=== PATIENT | female | born 1960 | race Caucasian/White ===

== ENCOUNTER → 2016-04-02 | Outpatient (CLI) | payer BC ==
[~2016-04-02] MED LIST: MOME50SP5
== END | disposition home or self-care (01) ==
LOC: C.PATHSPEC 13:39
PROVIDERS: ATTEND Obstetrics & Gynecology
DX: R87.610 Atypical squamous cells of undetermined significance on cytologic smear of cervix (ASC-US) (principal); A63.0 Anogenital (venereal) warts

== ENCOUNTER → 2016-04-02 | Outpatient (CLI) | payer BC | END | disposition home or self-care (01) | LOC: C.PAPS 13:14 | PROVIDERS: ATTEND Obstetrics & Gynecology | DX: R87.610 Atypical squamous cells of undetermined significance on cytologic smear of cervix (ASC-US) (principal); A63.0 Anogenital (venereal) warts ==

== ENCOUNTER → 2016-04-11 | Outpatient (CLI) | payer BC ==
--- NOTE | 2016-04-11 12:31 | MAMMOGRAPHY REPORT ---
UNILATERAL LEFT DIGITAL DIAGNOSTIC MAMMOGRAM TOMOSYNTHESIS WITH CAD AND TARGETED LEFT ULTRASOUND: CLINICAL HISTORY: 6 Month Follow-up Left. TECHNIQUE: Breast tomosynthesis in addition to standard 2D mammography was performed. Current study was also evaluated with a Computer Aided Detection (CAD) system. Left CC and MLO 2-D and tomosynth esis images were obtained. COMPARISON: Comparison is made to exams dated: 10/09/2015 mammogram, 10/09/2015 ultrasound, 09/20/2015 mammogram - [facility]. BREAST COMPOSITION: There are scattered areas of fibroglandular density in the left breast. FINDINGS: Again noted is a 4 mm focal asymmetry in the left upper outer quadrant, which is of mixed density including fat density. The asymmetry is stable compared to the September 2015 exam. The paulette danilo of the left breast is stable compared to prior exams, without suspicious masses, calcification s, or areas of architectural distortion noted. Targeted ultrasound was performed of the left upper outer quadrant in the region of the focal asymme try. In the left breast at 1:00, 10 cm from the nipple, there is a superficial ill-defined hypoecho ic 4 x 1 x 3 mm mass. No clear internal vascularity is evident. This likely corresponds with the st able focal asymmetry. This does not clearly have features of an intramammary lymph node. The mass is probably benign and could represent fat necrosis. Recommend another short-term interval follow-u p to confirm stability. IMPRESSION: ACR-BI-RADS CATEGORY 3: PROBABLY BENIGN, TARGETED ULTRASOUND ACR-BI-RADS CATEGORY 3: DC OBABLY BENIGN Small 4 mm focal asymmetry in the left upper outer quadrant is stable compared to the September 2015 ex am, with possible correlate seen within the left breast at 1:00 on ultrasound. The mass is probably benign given the stability and could represent an intramammary lymph node versus fat necrosis. Rec ommend bilateral diagnostic mammograms in 6 months, to reevaluate the left breast asymmetry and for routine mammography of the right breast. The patient has been verbally notified of the results. Approximately 10% of breast cancers are not detected with mammography. A negative mammographic repor t should not delay biopsy if a clinically suggestive mass is present. Rowena Rosario M.D. ah/:04/11/2016 09:36:48 Cash Applications Coordinator: Lali Knee RT(R)(M), [facility] letter sent: Follow Up Recommended 3 BI-RADS Code: ACR-BI-RADS Category 3: Probably Benign Ultrasound BI-RADS: ACR-BI-RADS Category 3: P robably Benign
== END | disposition home or self-care (01) ==
LOC: C.MAMM 08:24
PROVIDERS: ATTEND Family Medicine
DX: N63 Unspecified lump in breast (principal)

== ENCOUNTER → 2016-05-01 | Outpatient (CLI) | payer BC ==
--- NOTE | 2016-05-01 12:18 | DIAGNOSTIC IMAGING REPORT ---
RIGHT ANKLE MIN 3 VIEWS ROUTINE CLINICAL HISTORY: PAIN IN R ANKLE AND JOINTS OF R FOOT Right pain COMPARISON: None. DISCUSSION: Small heel spur. Otherwise negative study osseous structures. Mild lateral rogers malleolar soft tissue edema. Subtalar joint appears intact. IMPRESSION: Mild lateral soft tissue edema. Heel spur. No acute bony abnormality. Electronically signed by: Micah Nieto M.D. 05/01/2016 12:16 PM Dictated Date/Time: 05/01/2016 12:14 PM
== END | disposition home or self-care (01) ==
LOC: C.RAD1850 11:58
PROVIDERS: ATTEND Family Medicine
DX: M25.571 Pain in right ankle and joints of right foot (principal); M77.31 Calcaneal spur, right foot

== ENCOUNTER → 2016-10-09 | Outpatient (CLI) | payer BC | END | disposition home or self-care (01) | LOC: C.PATHSPEC 13:29 | PROVIDERS: ATTEND Obstetrics & Gynecology | DX: A63.0 Anogenital (venereal) warts (principal); R87.612 Low grade squamous intraepithelial lesion on cytologic smear of cervix (LGSIL) ==

== ENCOUNTER → 2016-10-09 | Outpatient (CLI) | payer BC | END | disposition home or self-care (01) | LOC: C.PAPS 13:47 | PROVIDERS: ATTEND Obstetrics & Gynecology | DX: Z01.411 Encounter for gynecological examination (general) (routine) with abnormal findings (principal); R87.612 Low grade squamous intraepithelial lesion on cytologic smear of cervix (LGSIL); A63.0 Anogenital (venereal) warts ==

== ENCOUNTER → 2016-10-09 | Outpatient (CLI) | payer BC ==
--- NOTE | 2016-10-09 16:00 | MAMMOGRAPHY REPORT ---
BILATERAL DIGITAL DIAGNOSTIC MAMMOGRAM TOMOSYNTHESIS WITH CAD AND TARGETED LEFT ULTRASOUND: 10/09/2016 CLINICAL HISTORY: Short interval follow-up of left breast mass. The patient reports no current compl aints. TECHNIQUE: Breast tomosynthesis in addition to standard 2D mammography was performed. Current study was also evaluated with a Computer Aided Detection (CAD) system. Bilateral CC and MLO 2-D and tomosy nthesis images were obtained. COMPARISON: Comparison is made to exams dated: 04/11/2016 ultrasound, 04/11/2016 mammogram, 10/09/2015 mammogram, 10/09/2015 ultrasound, 09/20/2015 mammogram - [facility], and 01/07/2005 ma mmogram. BREAST COMPOSITION: There are scattered areas of fibroglandular density in both breasts. FINDINGS: Again noted is an oval circumscribed 5 mm mass within the left upper outer quadrant. The mass is stable mammographically dating back to the 09/20/2015 exam. The remainder of both breasts are stable compared to prior exams, without suspicious masses, calcifications, or areas of architectural distortion noted. Targeted ultrasound was performed of the left breast in the region of the previously seen mammographi c mass. In the left breast at 1:00, approximately 10 cm from the nipple, again noted is a superficia l hypoechoic region measuring 3 x 4 mm, not significantly changed compared to the Mar 2016 exam. On the radial view, there is a possible echogenic fatty hilum although no internal vascularity is eviden t. This may correspond with the stable mammographic mass and may represent an intramammary lymph nod e. IMPRESSION: ACR-BI-RADS CATEGORY 3: PROBABLY BENIGN, TARGETED ULTRASOUND ACR-BI-RADS CATEGORY 3: PRO BABLY BENIGN Small 5 mm circumscribed mass in the left upper outer quadrant is stable dating back to the October 06 exam, and is probably benign given 1 year of stability and may represent an intramammary lymph nod e or other benign mass. Recommend bilateral diagnostic tomosynthesis mammograms in 12 months, to con firm 2 years of stability of the left breast mass and for routine mammography of the right breast. The patient was verbally notified of the results. Approximately 10% of breast cancers are not detected with mammography. A negative mammographic report should not delay biopsy if a clinically suggestive mass is present. Rowena Rosario M.D. ah/:10/09/2016 08:35:41 Refrigeration Service Technician: Joana Hoover RT(R)(M), [facility] letter sent: Follow Up Recommended 3 BI-RADS Code: ACR-BI-RADS Category 3: Probably Benign Ultrasound BI-RADS: ACR-BI-RADS Category 3: Pr obably Benign
== END | disposition home or self-care (01) ==
LOC: C.MAMM 07:54
PROVIDERS: ATTEND Family Medicine
DX: N63 Unspecified lump in breast (principal)

== ENCOUNTER → 2016-11-07 | Outpatient (CLI) | payer BC | END | disposition home or self-care (01) | LOC: C.LABSPEC 14:01 | PROVIDERS: ATTEND Obstetrics & Gynecology | DX: N87.0 Mild cervical dysplasia (principal) ==

== ENCOUNTER → 2017-05-27 | Outpatient (CLI) | payer OTHER | END | disposition home or self-care (01) | LOC: C.PATHSPEC 17:30 | PROVIDERS: ATTEND Obstetrics & Gynecology | DX: N87.0 Mild cervical dysplasia (principal) ==

== ENCOUNTER → 2017-05-27 | Outpatient (CLI) | payer OTHER | END | disposition home or self-care (01) | LOC: C.PAPS 09:35 | PROVIDERS: ATTEND Obstetrics & Gynecology | DX: N87.0 Mild cervical dysplasia (principal); R87.612 Low grade squamous intraepithelial lesion on cytologic smear of cervix (LGSIL) ==